=== PATIENT | male | born 1975 | race Caucasian/White ===

== ENCOUNTER 2020-11-27 07:17 | Outpatient (CLI) | payer OTHER, SELFPAY ==
--- NOTE | 2020-11-27 09:00 | EST_ITS ---
Patient Info Name: Kelsey Klein Age: 44 years : 1975 Gender: Male Ht: 71 in Wt: 183 lbs BSA: 2.05 m2 HR: 84 bpm BP: 138 / 87 mmHg Heart Rhythm: Sinus Rhythm Technical Quality: Good Exam Date: 11/27/2020 8:52 AM Exam Location: [facility] Patient Status: Outpatient Admit Date: 11/27/2020 Staff Ordering Physician: NareshNasreen APRN Attending Provider: EsterNasreen APRN Referring Physician: Nasreen Infante NP; Exercise Technologist: Caridad Self CRT Exercise Physician: Ria Hitchcock CEP Exam Type: CA stress test treadmill w NM Study Info Indications chestpain - An exercise stress test was performed. History/Risk Factors Hypertension: Yes Diabetes Mellitus: Yes Tobacco Use: Former Family History: Coronary Artery Disease, YES History/Risk Factors Dyslipidemia. Former Smoker. Hypertension. Family History. Diabetes. Summary 1. 1. Negative Santos exercise stress test for ischemic ST changes by ECG criteria. 2. 2. Good functional capacity, achieving 11 METs of workload. 3. 3. Hypertensive response to exercise. 4. 4. Appropriate HR response to exercise. 5. 5. Appropriate HR recovery at 1 minute post exercise. 6. 6. Nuclear images to follow and will be reported separately. Please correlate with it. Protocol: Santos Stress ECG Details Stage: REST Duration (min): 1 min : 22 sec Speed (mph): 0.0 Grade (%): 0 HR (bpm): 87 SBP (mmHg): 138 DBP (mmHg): 87 METS: --- Stage: REST Duration (min): 9 min : 35 sec Speed (mph): 0.0 Grade (%): 0 HR (bpm): 98 SBP (mmHg): 138 DBP (mmHg): 87 METS: --- Stage: STAGE 1 Duration (min): 1 min : 0 sec Speed (mph): 1.7 Grade (%): 10 HR (bpm): 117 SBP (mmHg): 138 DBP (mmHg): 87 METS: --- Stage: STAGE 1 Duration (min): 2 min : 0 sec Speed (mph): 1.7 Grade (%): 10 HR (bpm): 113 SBP (mmHg): 138 DBP (mmHg): 87 METS: --- Stage: STAGE 1 Duration (min): 3 min : 0 sec Speed (mph): 1.7 Grade (%): 10 HR (bpm): 122 SBP (mmHg): 163 DBP (mmHg): 88 METS: --- Stage: STAGE 2 Duration (min): 1 min : 0 sec Speed (mph): 2.5 Grade (%): 12 HR (bpm): 132 SBP (mmHg): 163 DBP (mmHg): 88 METS: --- Stage: STAGE 2 Duration (min): 2 min : 0 sec Speed (mph): 2.5 Grade (%): 12 HR (bpm): 137 SBP (mmHg): 163 DBP (mmHg): 88 METS: --- Stage: STAGE 2 Duration (min): 3 min : 0 sec Speed (mph): 2.5 Grade (%): 12 HR (bpm): 142 SBP (mmHg): 173 DBP (mmHg): 81 METS: --- Stage: STAGE 3 Duration (min): 1 min : 0 sec Speed (mph): 3.4 Grade (%): 14 HR (bpm): 148 SBP (mmHg): 173 DBP (mmHg): 81 METS: --- Stage: STAGE 3 Duration (min): 2 min : 0 sec Speed (mph): 3.4 Grade (%): 14 HR (bpm): 154 SBP (mmHg): 173 DBP (mmHg): 81 METS: --- Stage: STAGE 3 D
== END 2020-11-27 07:18 | disposition home or self-care (01) ==
LOC: CHSCARD 07:21
PROVIDERS: PCP Family Medicine; Visit Provider Nurse Practitioner
DX: R07.9 Chest pain, unspecified (principal)
CPT/HCPCS: 78452; 93017; A9502

== ENCOUNTER → 2023-05-31 08:55 | Outpatient (CLI) | payer OTHER, MEDICAID, SELFPAY ==
--- NOTE | ~2023-05-31 | MR_ITS ---
EXAMINATION: MR knee RT wo con DATE: 05/31/2023 09:47 INDICATION: posterior/medial right knee pain/swelling x5mos, no trauma, TECHNIQUE: Magnetic resonance imaging (MRI) of the right knee was performed without intravenous contr ast. Sequences included axial PD-weighted FS FSE, coronal PD-weighted FSE and PD-weighted FS FSE, sag ittal PD-weighted FSE, and sagittal T2-weighted FS FSE. COMPARISON: None. FINDINGS: Medial compartment: Complex tear of the posterior horn, with vertical and oblique components and a small superiorly direc jesus alberto flap mild extrusion. 8mm area of full-thickness cartilage loss on the medial aspect of the medial tibial plateau with subjacent marrow edema. Multifocal partial-thickness cartilage defects. Moderate osteophytosis. Lateral compartment: Meniscus intact. Mild multifocal cartilage defects. Moderate osteophytosis. Patellofemoral compartment: Focal partial thickness cartilage defect over the median ridge. Cartilage fraying of the medial facet and femoral groove. Intact retinacula. Ligaments and tendons: Marked thickening and abnormal signal within the ACL. Mild thickening and superficial/deep abnormal f luid about the MCL. The PCL and LCL are intact. Remaining flexor and extensor tendons are intact. Fluid: Large volume knee joint fluid collection. Osseous/other: No suspicious focal or diffuse marrow signal. IMPRESSION: Complex tear posterior horn, medial meniscus. High-grade partial ACL tear. Mild partial tear of the MCL. Tricompartmental osteoarthritis, moderate in the medial compartment Reviewed, dictated and finalized at location K.
== END ==
PROVIDERS: PCP Nurse Practitioner; Visit Provider Nurse Practitioner
DX: M17.11 Unilateral primary osteoarthritis, right knee (principal); S83.411A Sprain of medial collateral ligament of right knee, initial encounter; S83.511A Sprain of anterior cruciate ligament of right knee, initial encounter; S83.231A Complex tear of medial meniscus, current injury, right knee, initial encounter; X58.XXXA Exposure to other specified factors, initial encounter
CPT/HCPCS: 73721